=== PATIENT | male | born 1940 ===

== ENCOUNTER 2017-07-04 04:56 | Inpatient (IN) | payer BC, MEDICARE ==
[2017-07-04 05:27] LABS: GRANULAR CAST 1 /lpf (0-1); SQUAMOUS EPITHIAL < 1 /hpf (0-5); URINE BILIRUBIN NEGATIVE (NEGATIVE); URINE BLOOD 3+ (NEGATIVE); URINE CLARITY Clear (Clear); URINE COLOR Yellow (YELLOW); URINE GLUCOSE (UA) NORMAL (Normal); URINE LEUKOCYTE ESTERASE NEG Leu/uL (Negative); URINE PROTEIN 1+ mg/dL (NEGATIVE); URINE UROBILINOGEN NORMAL mg/dL (0.2-1.0)
[2017-07-04 05:29] LABS: BASO # 0.1 K/uL (0.0-0.2); BASO % 0.8 % (0.0-2.0); EOS # 0.1 K/uL (0.0-0.7); EOS % 1.3 % (0.0-4.0); HEMOGLOBIN 14.2 g/dL (12.0-18.0); LYMPH # 0.6 K/uL (1.0-4.3); LYMPH % 8.3 % (20.0-40.0); MEAN CELL VOLUME 91.9 fL (80.0-94.0); MEAN CORPUSCULAR HEMOGLOBIN 31.1 pg (27.0-31.0); MEAN CORPUSCULAR HGB CONC 33.8 g/dL (33.0-37.0); MEAN PLATELET VOLUME 7.4 fL (7.2-11.7); MONO # 0.6 K/uL (0.0-0.8); MONO % 7.5 % (0.0-10.0); NEUT # 6.1 K/uL (1.8-7.0); NEUT % 82.1 % (50.0-75.0); NRBC % 0.2 % (0.0-2.0); PLATELET COUNT 234 K/uL (130-400); RBC 4.56 Mil/uL (4.40-5.90); RED CELL DISTRIBUTION WIDTH 13.1 % (11.5-14.5); WHITE BLOOD COUNT 7.4 K/uL (4.8-10.8)
--- NOTE | 2017-07-04 05:37 | C.PDOC ---
History Of Present Illness <Bautista Aleman R - Last Filed: 07/04/17 06:00> <Dustin Mccurdy - Last Filed: 07/04/17 09:26> 76 y/o male presents to ED with complaints of hematuria described as grossly blood that began today. Patient reports brown urine color tonight. Hx of back pain. (AshBautista Duran) History Per: Patient History/Exam Limitations: no limitations Onset/Duration Of Symptoms: Hrs Current Symptoms Are (Timing): Still Present Quality Of Discomfort: Unable To Describe Associated Symptoms: denies: Fever, Chills, Nausea, Vomiting, Diarrhea Alleviating Factors: None Recent travel outside of the [place]: No <Bautista Aleman - Last Filed: 07/04/17 06:00> <KazDustin - Last Filed: 07/04/17 09:26> Chief Complaint (Nursing): Male Genitourinary Past Medical History Reviewed: Historical Data, Nursing Documentation, Vital Signs - Medical History PMH: No Chronic Diseases Surgical History: No Surg Hx Family History: States: No Known Family Hx - Social History Hx Alcohol Use: No Hx Substance Use: No - Immunization History Hx Tetanus Toxoid Vaccination: No Hx Influenza Vaccination: No Hx Pneumococcal Vaccination: No <Bautista Aleman - Last Filed: 07/04/17 06:00> Vital Signs: Last Vital Signs Temp 98.2 F 07/04/17 08:54 Pulse 73 07/04/17 08:54 Resp 18 07/04/17 08:54 BP 148/74 07/04/17 08:54 Pulse Ox 96 07/04/17 08:54 Review Of Systems Constitutional: Negative for: Fever, Chills Gastrointestinal: Negative for: Nausea, Vomiting, Diarrhea Genitourinary: Positive for: Hematuria. Negative for: Dysuria Neurological: Negative for: Weakness, Numbness <Bautista Aleman - Last Filed: 07/04/17 06:00> Physical Exam - Physical Exam Appears: Well, Non-toxic, No Acute Distress Skin: Normal Color, Warm, Dry Head: Atraumatic, Normacephalic Eye(s): bilateral: Normal Inspection, PERRL, EOMI Oral Mucosa: Moist Neck: Supple Chest: Symmetrical, No Tenderness Cardiovascular: Rhythm Regular Respiratory: Normal Breath Sounds, No Decreased Breath Sounds, No Rales, No Rhonchi, No Wheezing Gastrointestinal/Abdominal: Soft, No Tenderness, No Distention, No Guarding, No Rebound Extremity: Normal ROM Neurological/Psych: Oriented x3, Normal Speech, Normal Cognition <Bautista Aleman R - Last Filed: 07/04/17 06:00> ED Course And Treatment - Laboratory Results Result Diagrams: 07/04/17 05:25 07/04/17 05:25 O2 Sat by Pulse Oximetry: 97 (RA) Pulse Ox Interpretation: Normal - CT Scan/US CT Abdomen & Pelvis Other Rad Studies (CT/US): Read By Radiologist, Radiology Report Reviewed CT/US Interpretation: EXAM: CT Abdomen and Pelvis Without Intravenous Contrast. CLINICAL HISTORY: 76 years old, male; Signs and symp. [facility]. [facility]. Final Radiology Report [id number]. Name: ABEBE CORTEZ Age: 76Years M Date: 07/04/2017. : 1940. Study: CT ABDOMEN/PELVIS WO Requesting Physician: Bautista Aleman. Images: 584. Addl Studies: Provided Clinical History: gross hematuria. CONFIDENTIALITY STATEMENT. This transmission is confidential and is intended to be a privileged communication. It is intended only for the use of the addressee. Access to this. message by anyone else is unauthorized. If you are not the intended recipient, any disclosure, copying, distribution or any action taken, or omitted to. be taken in reliance on it is prohibited and may be unlawful. If you received this communication in error, please notify us by telephone, so that return. of this document to us can be arranged. Page 2 of 3. Pancreas: Unremarkable. No ductal dilation. Spleen: Unremarkable. No splenomegaly. Adrenals: The right adrenal nodule measures 2.1 cm with a mean Hounsfield unit of 38 and is. indeterminate. The left adrenal nodule measures 2.5 cm with a mean Hounsfield unit of 39 and is. indeterminate. Kidneys and ureters: There is right perinephric inflammatory change with heterogeneous complex. density appearance to the right kidney. The right kidney mass cannot be excluded. Faint densities in. the medullary regions of left kidney are somewhat nonspecific, perhaps reflecting dense solute,. Herrera's plaque, tiny calcifications, or other debris. Abnormal appearance to the right kidney. Right. renal hypodensity likely representing renal cysts. Nonobstructive left renal stone. Stomach and bowel: Diverticulosis. Large amount of stool in the colon. Correlation with patient's. clinical history of constipation is recommended. There is stool like appearance to the distal small. bowel. This may represent slow transit. Appendix: Suboptimally seen normal appendix. PELVIS: Bladder: Partially decompressed bladder with bladder wall thickening. Correlation with urinalysis is. recommended only if clinical cystitis is suspected. Reproductive: Enlarged prostate gland measuring 6.4 x 5.8 cm with calcifications. Correlation with. digital rectal examination and serum PSA recommended. Possible hydrocele. ABDOMEN and PELVIS: Intraperitoneal space: Unremarkable. No free air. No significant fluid collection. Bones/joints: No acute fracture. No dislocation. Soft tissues: Bilateral inguinal herniation of fat. Vasculature: The aorta demonstrates calcified plaque and is mildly ectatic but normal in caliber. Lymph nodes: Unremarkable. No enlarged lymph nodes. [facility]. [facility]. Final Radiology Report [id number]. Name: ABEBE CORTEZ Age: 76Years M Date: 07/04/2017. SSN: [id number] : . Study: CT ABDOMEN/PELVIS WO Requesting Physician: Bautista Aleman. Images: 584. Addl Studies: Provided Clinical History: gross hematuria. CONFIDENTIALITY STATEMENT. This transmission is confidential and is intended to be a privileged communication. It is intended only for the use of the addressee. Access to this. message by anyone else is unauthorized. If you are not the intended recipient, any disclosure, copying, distribution or any action taken, or omitted to. be taken in reliance on it is prohibited and may be unlawful. If you received this communication in error, please notify us by telephone, so that return. of this document to us can be arranged. Page 3 of 3. IMPRESSION: 1. There is right perinephric inflammatory change with heterogeneous complex density. appearance to the right kidney. The right kidney mass cannot be excluded. Further. characterization with contrast enhanced CT scan with delayed imaging through the kidneys is. recommended. 2. Small bilateral pleural effusions. 3. Bibasilar lingular nonspecific infiltrates are present, consistent with atelectasis or pneumonia. versus edema. 4. Bilateral indeterminate adrenal nodules. Correlation with internal medicine/oncology evaluation and further workup or followup as. recommended by patient's clinical data. <Bautista Aelman - Last Filed: 07/04/17 06:00> - Laboratory Results Result Diagrams: 07/04/17 05:25 07/04/17 05:25 <Dustin Mccurdy - Last Filed: 07/04/17 09:26> Medical Decision Making <Bautista Aleman - Last Filed: 07/04/17 06:00> <Dustin Mccurdy - Last Filed: 07/04/17 09:26> Medical Decision Making: Ordered urine culture, urinalysis, and CT of abdomen & Pelvis. (Bautista Aleman) Signed out to me at change of shift pending CT chest due to infiltrates seen on CT abd CT chest shows multiple nodular opacities and consolidation. Patient does report cough for 3 weeks. Will start antibiotics for this as well as renal stranding and hematuria. (Dustin Mccurdy) Disposition <Bautista Aleman - Last Filed: 07/04/17 06:00> Discussed With .: Elvia Byrne Doctor Will See Patient In The: Hospital - Disposition Disposition Time: 09:25 - POA Core Measure Indicators: Pneumonia <Dustin Mccurdy - Last Filed: 07/04/17 09:26> - Disposition Disposition: HOSPITALIZED Condition: FAIR Forms: [facility] (Arabic) - Clinical Impression Clinical Impression: Pneumonia, Hematuria - Scribe Statement The provider has reviewed the documentation as recorded by the Scribe <Bautista Aleman - Last Filed: 07/04/17 06:00> <Dustin Mccurdy - Last Filed: 07/04/17 09:26> - Scribe Statement Kiesha Rojo All medical record entries made by the Scribe were at my direction and personally dictated by me. I have reviewed the chart and agree that the record accurately reflects my personal performance of the history, physical exam, medical decision making, and the department course for this patient. I have also personally directed, reviewed, and agree with the discharge instructions and disposition. (Bautista Aleman)
[2017-07-04 05:39] LABS: ALB/GLOB RATIO 1.1 (1.0-2.1); ALBUMIN 3.8 g/dL (3.5-5.0); ALT/SGPT 24 U/L (21-72); AST/SGOT 70 U/L (17-59); BLOOD UREA NITROGEN 22 mg/dL (9-20); CALCIUM 9.6 mg/dl (8.6-10.4); GFR AFRICAN-AMERICAN > 60; GFR NON-AFRICAN AMERICAN > 60
[2017-07-04 05:42] LABS: INR 1.1; PROTHROMBIN TIME 12.2 SECONDS (9.7-12.2)
--- NOTE | 2017-07-04 05:58 | CT ---
EXAM: CT Abdomen and Pelvis Without Intravenous Contrast CLINICAL HISTORY: 76 years old, male; Signs and symptoms; Other: Hematuria; Additional info: Gross hematuria TECHNIQUE: Axial computed tomography images of the abdomen and pelvis without intravenous contrast. All CT scans at this facility use one or more dose reduction techniques, viz.: automated exposure control; ma/kV adjustment per patient size (including targeted exams where dose is matched to indication; i.e. head); or iterative reconstruction technique. 584 images are submitted. Coronal and sagittal reformatted images were created and reviewed. COMPARISON: No relevant prior studies available. FINDINGS: Artifacts: Limited due to motion and misregistration artifacts. Limitations: Absence of IV contrast decreases sensitivity for detecting solid organ and vascular abnormality and injury. Lung bases: Bibasilar lingular nonspecific infiltrates are present, consistent with atelectasis or pneumonia versus edema. Pleural space: Small bilateral pleural effusions. ABDOMEN: Liver: There is a focal liver hypodensity that cannot be further characterized on the current examination. Gallbladder and bile ducts: Unremarkable. No ductal dilation. Pancreas: Unremarkable. No ductal dilation. Spleen: Unremarkable. No splenomegaly. Adrenals: The right adrenal nodule measures 2.1 cm with a mean Hounsfield unit of 38 and is indeterminate. The left adrenal nodule measures 2.5 cm with a mean Hounsfield unit of 39 and is indeterminate. Kidneys and ureters: There is right perinephric inflammatory change with heterogeneous complex density appearance to the right kidney. The right kidney mass cannot be excluded. Faint densities in the medullary regions of left kidney are somewhat nonspecific, perhaps reflecting dense solute, Herrera's plaque, tiny calcifications, or other debris. Abnormal appearance to the right kidney. Right renal hypodensity likely representing renal cysts. Nonobstructive left renal stone. Stomach and bowel: Diverticulosis. Large amount of stool in the colon. Correlation with patient's clinical history of constipation is recommended. There is stool like appearance to the distal small bowel. This may represent slow transit. Appendix: Suboptimally seen normal appendix. PELVIS: Bladder: Partially decompressed bladder with bladder wall thickening. Correlation with urinalysis is recommended only if clinical cystitis is suspected. Reproductive: Enlarged prostate gland measuring 6.4 x 5.8 cm with calcifications. Correlation with digital rectal examination and serum PSA recommended. Possible hydrocele. ABDOMEN and PELVIS: Intraperitoneal space: Unremarkable. No free air. No significant fluid collection. Bones/joints: No acute fracture. No dislocation. Soft tissues: Bilateral inguinal herniation of fat. Vasculature: The aorta demonstrates calcified plaque and is mildly ectatic but normal in caliber. Lymph nodes: Unremarkable. No enlarged lymph nodes. IMPRESSION: 1. There is right perinephric inflammatory change with heterogeneous complex density appearance to the right kidney. The right kidney mass cannot be excluded. Further characterization with contrast enhanced CT scan with delayed imaging through the kidneys is recommended. 2. Small bilateral pleural effusions. 3. Bibasilar lingular nonspecific infiltrates are present, consistent with atelectasis or pneumonia versus edema. 4. Bilateral indeterminate adrenal nodules. Correlation with internal medicine/oncology evaluation and further workup or followup as recommended by patient's clinical data.
[2017-07-04 06:26] LABS: BASOPHIL 1 % (0-2); EOSINOPHIL 1 % (0-4); LYMPHOCYTE 8 % (20-40); MONOCYTE 9 % (0-10); NEUTROPHIL 81 % (50-75); PLATELET ESTIMATE NORMAL (NORMAL); TOTAL CELLS COUNTED 100
--- NOTE | 2017-07-04 09:10 | CT ---
CT chest History: Effusion. Comparison: CT abdomen and pelvis dated 07/04/2017 Technique: Multiple contiguous axial images were performed through the chest without the use of intravenous contrast. Subsequently, sagittal and coronal reformatted images were obtained. This CT exam was performed using one or more of the following dose reduction techniques: Automated exposure control, adjustment of the mA and/or kV according to patient size, and/or use of iterative reconstruction technique. Findings: Trace bilateral pleural effusions. Right lun.4 centimeter focal area of nodular consolidation seen within the posterior aspect of the right upper lobe on series 3, image 32. Additional focal area of nodular consolidation seen within the anterior aspect of the right upper lobe on series 3, image 40. 6 millimeter nodule within the far anterior inferior aspect of the right upper lobe on series 3 image 55 adjacent to the fissure. Patchy consolidative changes at the right lung base. Left lun millimeter nodule within the lateral aspect of the mid left upper lobe on series 3, image 48. Focal ill-defined infiltrative opacity seen within the inferior aspect of the left upper lobe/lingula measuring 2.7 centimeters. Patchy consolidative changes at the posterior aspect of the left lower lobe. Trachea thru central airways are patent. No significant axillary adenopathy. Thyroid gland appears preserved. 1.1 centimeter left paratracheal lymph node. No significant hilar adenopathy. Prominent liver. 3 millimeter calcification in the right hepatic lobe superiorly. Few scattered focal hypodensities, too small to adequately characterize. For example, a 6 millimeter hypodensity in the left hepatic lobe on series 4, image 90, is too small to adequately characterize. Prominent nodular thickening of the bilateral adrenal glands. Superimposed lesions are noted; for example, on series 4, image 103 in the right adrenal gland measuring 2.1 centimeters demonstrating a Hounsfield unit attenuation of 28, indeterminate. In addition, in the left adrenal gland an additional lesion measuring 2.3 centimeters demonstrating a Hounsfield unit attenuation of 31, indeterminate. These would be better characterized with multiphasic CT or MRI studies. 9 millimeter nonobstructive calculus in the left kidney. Right perinephric inflammatory changes with heterogeneous complex density appearance to the right kidney. Right kidney mass and or neoplasm cannot be excluded. Partially exophytic cyst off the posterior aspect of the right kidney measures 1.6 centimeters. Degenerative changes in spine. Impression: 1. Again identified is right perinephric inflammatory changes with heterogeneous complex density appearance of the right kidney. Underlying right kidney mass and or neoplasm cannot be excluded. Correlation with multiphasic CT or MR through this region would be helpful if clinically indicated. 2. Trace bilateral pleural effusions. 3. 1.4 centimeter focal area of nodular consolidation seen within the posterior aspect of the right upper lobe on series 3, image 32. Additional focal area of nodular consolidation seen within the anterior aspect of the right upper lobe on series 3, image 40. 6 millimeter nodule within the far anterior inferior aspect of the right upper lobe on series 3 image 55 adjacent to the fissure. Patchy consolidative changes at the right lung base. Posttreatment interval followup study would be helpful to ensure resolution. 4. 2 millimeter nodule within the lateral aspect of the mid left upper lobe on series 3, image 48. Focal ill-defined infiltrative opacity seen within the inferior aspect of the left upper lobe/lingula measuring 2.7 centimeters. Patchy consolidative changes at the posterior aspect of the left lower lobe. Posttreatment interval followup study would be helpful to ensure resolution. 5. 1.1 centimeter left paratracheal lymph node. 6. Prominent liver. 3 millimeter calcification in the right hepatic lobe superiorly. Few scattered focal hypodensities, too small to adequately characterize. For example, a 6 millimeter hypodensity in the left hepatic lobe on series 4, image 90, is too small to adequately characterize. 7. Prominent nodular thickening of the bilateral adrenal glands. Superimposed lesions are noted; for example, on series 4, image 103 in the right adrenal gland measuring 2.1 centimeters demonstrating a Hounsfield unit attenuation of 28, indeterminate. In addition, in the left adrenal gland an additional lesion measuring 2.3 centimeters demonstrating a Hounsfield unit attenuation of 31, indeterminate. These would be better characterized with multiphasic CT or MRI studies. 8. 9 millimeter nonobstructive calculus in the left kidney.
[2017-07-04] MEDS ORDERED: Cefepime IV 1 gm in Dextrose 1 GM/50 ML BAG IVPB STA (09:21)
[2017-07-04] MEDS ORDERED: Enoxaparin 40 mg Syringe SC SCH (11:15)
[2017-07-04] MEDS: Pantoprazole 40 mg EC Tab PO SCH (11:48)
[2017-07-04] MEDS: Azithromycin 500mg/250ML NS 500 MG/250 ML BAG IVPB SCH (12:34)
--- NOTE | 2017-07-04 18:07 | CP.PCM.HP ---
Past Patient History - Infectious Disease Hx of Infectious Diseases: None - Past Medical History & Family History Past Medical History?: No - Past Social History Smoking Status: Never Smoked - CARDIAC Hx Cardiac Disorders: No - PULMONARY Hx Respiratory Disorders: No - NEUROLOGICAL Hx Neurological Disorder: No - HEENT Hx HEENT Problems: No - RENAL Hx Chronic Kidney Disease: No - ENDOCRINE/METABOLIC Hx Endocrine Disorders: No - HEMATOLOGICAL/ONCOLOGICAL Hx Blood Disorders: Yes Hx Cancer: Yes (skin) - INTEGUMENTARY Hx Dermatological Problems: No - MUSCULOSKELETAL/RHEUMATOLOGICAL Hx Musculoskeletal Disorders: No Hx Falls: No - GASTROINTESTINAL Hx Gastrointestinal Disorders: No - GENITOURINARY/GYNECOLOGICAL Hx Genitourinary Disorders: No - PSYCHIATRIC Hx Substance Use: No - SURGICAL HISTORY Hx Surgeries: Yes Other/Comment: Hernia repair in 1984 - ANESTHESIA Hx Anesthesia: Yes Hx Anesthesia Reactions: No Hx Malignant Hyperthermia: No Meds Allergies/Adverse Reactions: Allergies Allergy/AdvReac Type Severity Reaction Status Date / Time Penicillins Allergy Verified 07/04/17 09:26 Physical Exam - Constitutional Appears: Well - Head Exam Head Exam: ATRAUMATIC, NORMAL INSPECTION, NORMOCEPHALIC - Eye Exam Eye Exam: EOMI, Normal appearance, PERRL Pupil Exam: NORMAL ACCOMODATION, PERRL - ENT Exam ENT Exam: Mucous Membranes Moist, Normal Exam - Neck Exam Neck exam: Positive for: Normal Inspection - Respiratory Exam Respiratory Exam: Decreased Breath Sounds - Cardiovascular Exam Cardiovascular Exam: REGULAR RHYTHM, +S1, +S2 - GI/Abdominal Exam GI & Abdominal Exam: Diminished Bowel Sounds, Soft - Rectal Exam Rectal Exam: Deferred Results - Vital Signs Recent Vital Signs: Last Vital Signs Temp 98.2 F 07/04/17 16:00 Pulse 82 07/04/17 16:00 Resp 20 07/04/17 16:00 BP 153/79 H 07/04/17 16:00 Pulse Ox 97 07/04/17 16:00 - Labs Result Diagrams: 07/04/17 05:25 07/04/17 05:25 Labs: Laboratory Results - last 24 hr 07/04/17 07/04/17 07/04/17 05:19 05:25 05:25 WBC 7.4 RBC 4.56 Hgb 14.2 Hct 41.9 MCV 91.9 MCH 31.1 H MCHC 33.8 RDW 13.1 Plt Count 234 MPV 7.4 Neut % (Auto) 82.1 H Lymph % (Auto) 8.3 L [place] % (Auto) 7.5 Eos % (Auto) 1.3 Baso % (Auto) 0.8 Neut # (Auto) 6.1 Lymph # (Auto) 0.6 L [place] # (Auto) 0.6 Eos # (Auto) 0.1 Baso # (Auto) 0.1 Neutrophils % (Manual) 81 H Lymphocytes % (Manual) 8 L Monocytes % (Manual) 9 Eosinophils % (Manual) 1 Basophils % (Manual) 1 Platelet Estimate Normal RBC Morphology Normal PT 12.2 INR 1.1 APTT 32 Sodium Potassium Chloride Carbon Dioxide Anion Gap BUN Creatinine Est GFR ( Amer) Est GFR (Non-Af Amer) Random Glucose Calcium Total Bilirubin AST ALT Alkaline Phosphatase NT-Pro-B Natriuret Pep Total Protein Albumin Globulin Albumin/Globulin Ratio Urine Color Yellow Urine Clarity Clear Urine pH 5.0 Ur Specific [place] 1.019 Urine Protein 1+ H Urine Glucose (UA) Normal Urine Ketones Negative Urine Blood 3+ H Urine Nitrate Negative Urine Bilirubin Negative Urine Urobilinogen Normal Ur Leukocyte Esterase Neg Urine WBC (Auto) 5 Urine RBC (Auto) 102 H Ur Squamous Epith Cells < 1 Granular Casts (Auto) 1 07/04/17 07/04/17 05:25 06:51 WBC RBC Hgb Hct MCV MCH MCHC RDW Plt Count MPV Neut % (Auto) Lymph % (Auto) [place] % (Auto) Eos % (Auto) Baso % (Auto) Neut # (Auto) Lymph # (Auto) [place] # (Auto) Eos # (Auto) Baso # (Auto) Neutrophils % (Manual) Lymphocytes % (Manual) Monocytes % (Manual) Eosinophils % (Manual) Basophils % (Manual) Platelet Estimate RBC Morphology PT INR APTT Sodium 139 Potassium 4.2 Chloride 100 Carbon Dioxide 27 Anion Gap 16 BUN 22 H Creatinine 1.1 Est GFR ( Amer) > 60 Est GFR (Non-Af Amer) > 60 Random Glucose 101 Calcium 9.6 Total Bilirubin 0.8 AST 70 H ALT 24 Alkaline Phosphatase 80 NT-Pro-B Natriuret Pep 80.8 Total Protein 7.3 Albumin 3.8 Globulin 3.5 Albumin/Globulin Ratio 1.1 Urine Color Urine Clarity Urine pH Ur Specific [place] Urine Protein Urine Glucose (UA) Urine Ketones Urine Blood Urine Nitrate Urine Bilirubin Urine Urobilinogen Ur Leukocyte Esterase Urine WBC (Auto) Urine RBC (Auto) Ur Squamous Epith Cells Granular Casts (Auto)
[2017-07-05 07:58] LABS: BASO % 0.2 % (0.0-2.0); EOS # 0.1 K/uL (0.0-0.7); EOS % 1.1 % (0.0-4.0); HEMOGLOBIN 14.3 g/dL (12.0-18.0); LYMPH # 0.7 K/uL (1.0-4.3); LYMPH % 11.3 % (20.0-40.0); MEAN CELL VOLUME 92.3 fL (80.0-94.0); MEAN CORPUSCULAR HEMOGLOBIN 31.6 pg (27.0-31.0); MEAN CORPUSCULAR HGB CONC 34.2 g/dL (33.0-37.0); MEAN PLATELET VOLUME 7.8 fL (7.2-11.7); MONO # 0.6 K/uL (0.0-0.8); NEUT # 4.9 K/uL (1.8-7.0); NEUT % 77.4 % (50.0-75.0); NRBC % 0.1 % (0.0-2.0); RBC 4.52 Mil/uL (4.40-5.90); RED CELL DISTRIBUTION WIDTH 12.9 % (11.5-14.5); WHITE BLOOD COUNT 6.3 K/uL (4.8-10.8)
[2017-07-05 08:16] LABS: ALBUMIN 3.4 g/dL (3.5-5.0); ALT/SGPT 18 U/L (21-72); AST/SGOT 70 U/L (17-59); BLOOD UREA NITROGEN 18 mg/dL (9-20); CALCIUM 9.6 mg/dl (8.6-10.4); GFR AFRICAN-AMERICAN > 60; GFR NON-AFRICAN AMERICAN 59
[2017-07-05] MEDS: Pantoprazole 40 mg EC Tab PO SCH (09:08)
[2017-07-05] MEDS: Azithromycin 500mg/250ML NS 500 MG/250 ML BAG IVPB SCH (11:14)
--- NOTE | 2017-07-05 15:14 | CP.PCM.PN ---
Subjective - Date & Time of Evaluation Date of Evaluation: 07/05/17 Time of Evaluation: 09:20 - Subjective Subjective: clinically same Objective - Vital Signs/Intake and Output Vital Signs (last 24 hours): Temp Pulse Resp BP Pulse Ox 97.6 F 79 20 137/71 95 07/05/17 08:00 07/05/17 08:00 07/05/17 08:00 07/05/17 08:00 07/05/17 08:00 Intake and Output: 07/05/17 07/05/17 06:59 18:59 Intake Total 470 Balance 470 - Medications Medications: Current Medications Cefepime HCl 1 gm/ Dextrose 50 mls @ 100 mls/hr IVPB DAILY KATHLEEN PRN Reason: Protocol Last Admin: 07/05/17 09:08 Dose: 100 mls/hr Azithromycin (Zithromax 500mg In Ns Addvantage) 500 mg in 250 mls @ 167 mls/hr IVPB Q24H KATHLEEN PRN Reason: Protocol Last Admin: 07/05/17 11:14 Dose: 167 mls/hr Pantoprazole Sodium (Protonix Ec Tab) 40 mg PO DAILY [facility] Last Admin: 07/05/17 09:08 Dose: 40 mg Pneumococcal Polyvalent Vaccine (Pneumovax 23 Vaccine) 0.5 ml IM .ONCE ONE Stop: 07/07/17 10:01 - Labs Labs: 07/05/17 07:40 07/05/17 07:40 PT 12.2 SECONDS (9.7-12.2) 07/04/17 05:25 INR 1.1 07/04/17 05:25 APTT 32 SECONDS (21-34) 07/04/17 05:25 - Constitutional Appears: Well - Head Exam Head Exam: ATRAUMATIC, NORMAL INSPECTION, NORMOCEPHALIC - Eye Exam Eye Exam: EOMI, Normal appearance, PERRL Pupil Exam: NORMAL ACCOMODATION, PERRL - ENT Exam ENT Exam: Mucous Membranes Moist, Normal Exam - Neck Exam Neck Exam: Full ROM, Normal Inspection. absent: Lymphadenopathy - Respiratory Exam Respiratory Exam: Decreased Breath Sounds - Cardiovascular Exam Cardiovascular Exam: REGULAR RHYTHM, +S1, +S2 - GI/Abdominal Exam GI & Abdominal Exam: Soft, Diminished Bowel Sounds - Rectal Exam Rectal Exam: Deferred
--- NOTE | 2017-07-05 15:23 | CP.PCM.PCO ---
Physician Communication Note - Physician Communication Note Physician Communication Note: Please see above
[2017-07-05] MEDS ORDERED: Oxymetazoline 0.05% Nasal Spray (30 ml) NS ONE (16:00)
[2017-07-06 07:20] LABS: BASO % 0.2 % (0.0-2.0); EOS # 0.1 K/uL (0.0-0.7); EOS % 1.2 % (0.0-4.0); HEMOGLOBIN 13.9 g/dL (12.0-18.0); LYMPH # 0.9 K/uL (1.0-4.3); LYMPH % 13.1 % (20.0-40.0); MEAN CELL VOLUME 91.7 fL (80.0-94.0); MEAN CORPUSCULAR HEMOGLOBIN 31.5 pg (27.0-31.0); MEAN CORPUSCULAR HGB CONC 34.3 g/dL (33.0-37.0); MEAN PLATELET VOLUME 7.7 fL (7.2-11.7); MONO # 0.7 K/uL (0.0-0.8); MONO % 10.9 % (0.0-10.0); NEUT # 4.9 K/uL (1.8-7.0); NEUT % 74.6 % (50.0-75.0); RBC 4.42 Mil/uL (4.40-5.90); RED CELL DISTRIBUTION WIDTH 12.6 % (11.5-14.5); WHITE BLOOD COUNT 6.6 K/uL (4.8-10.8)
[2017-07-06 07:36] LABS: ALBUMIN 3.6 g/dL (3.5-5.0); ALT/SGPT 17 U/L (21-72); AST/SGOT 79 U/L (17-59); BLOOD UREA NITROGEN 18 mg/dL (9-20); CALCIUM 9.9 mg/dl (8.6-10.4); GFR AFRICAN-AMERICAN > 60; GFR NON-AFRICAN AMERICAN 59
[2017-07-06] MEDS: Pantoprazole 40 mg EC Tab PO SCH (10:20)
[2017-07-06] MEDS: Azithromycin 500mg/250ML NS 500 MG/250 ML BAG IVPB SCH (10:59)
--- NOTE | 2017-07-06 13:52 | CP.PCM.PN ---
Subjective - Date & Time of Evaluation Date of Evaluation: 07/06/17 Time of Evaluation: 10:40 - Subjective Subjective: clinically same Objective - Vital Signs/Intake and Output Vital Signs (last 24 hours): Temp Pulse Resp BP Pulse Ox 98.1 F 71 20 122/69 96 07/06/17 00:00 07/06/17 00:00 07/06/17 00:00 07/06/17 00:00 07/06/17 00:00 - Medications Medications: Current Medications Cefepime HCl 1 gm/ Dextrose 50 mls @ 100 mls/hr IVPB DAILY KATHLEEN PRN Reason: Protocol Last Admin: 07/06/17 10:20 Dose: 100 mls/hr Azithromycin (Zithromax 500mg In Ns Addvantage) 500 mg in 250 mls @ 167 mls/hr IVPB Q24H KATHLEEN PRN Reason: Protocol Last Admin: 07/06/17 10:59 Dose: 167 mls/hr Pantoprazole Sodium (Protonix Ec Tab) 40 mg PO DAILY KATHLEEN Last Admin: 07/06/17 10:20 Dose: 40 mg Pneumococcal Polyvalent Vaccine (Pneumovax 23 Vaccine) 0.5 ml IM .ONCE ONE Stop: 07/07/17 10:01 - Labs Labs: 07/06/17 06:56 07/06/17 06:56 PT 12.2 SECONDS (9.7-12.2) 07/04/17 05:25 INR 1.1 07/04/17 05:25 APTT 32 SECONDS (21-34) 07/04/17 05:25 - Constitutional Appears: Well - Head Exam Head Exam: ATRAUMATIC, NORMAL INSPECTION, NORMOCEPHALIC - Eye Exam Eye Exam: EOMI, Normal appearance, PERRL Pupil Exam: NORMAL ACCOMODATION, PERRL - ENT Exam ENT Exam: Mucous Membranes Moist, Normal Exam - Neck Exam Neck Exam: Full ROM, Normal Inspection. absent: Lymphadenopathy - Respiratory Exam Respiratory Exam: Decreased Breath Sounds - Cardiovascular Exam Cardiovascular Exam: REGULAR RHYTHM, +S1, +S2 - GI/Abdominal Exam GI & Abdominal Exam: Soft, Diminished Bowel Sounds - Rectal Exam Rectal Exam: Deferred
--- NOTE | 2017-07-06 21:29 | PCM.URO ---
Urology Progress Note - Objective Lab Studies: Reviewed (cystoscopy tomorrow) Lab Results Last 24 Hours: Laboratory Results - last 24 hr 07/06/17 07/06/17 06:56 06:56 WBC 6.6 RBC 4.42 Hgb 13.9 Hct 40.5 MCV 91.7 MCH 31.5 H MCHC 34.3 RDW 12.6 Plt Count 234 MPV 7.7 Neut % (Auto) 74.6 Lymph % (Auto) 13.1 L [place] % (Auto) 10.9 H Eos % (Auto) 1.2 Baso % (Auto) 0.2 Neut # (Auto) 4.9 Lymph # (Auto) 0.9 L [place] # (Auto) 0.7 Eos # (Auto) 0.1 Baso # (Auto) 0.0 Sodium 139 Potassium 4.4 Chloride 99 Carbon Dioxide 30 Anion Gap 15 BUN 18 Creatinine 1.2 Est GFR ( Amer) > 60 Est GFR (Non-Af Amer) 59 Random Glucose 100 Calcium 9.9 Total Bilirubin 0.7 AST 79 H ALT 17 L Alkaline Phosphatase 78 Total Protein 7.0 Albumin 3.6 Globulin 3.4 Albumin/Globulin Ratio 1.0 Intake & Output: Intake & Output 07/06/17 07/06/17 07/07/17 06:59 18:59 06:59 Other: # Voids Urine, Voided 2 Vital Signs: Vital Signs - 24 hr 07/06/17 07/06/17 00:00 15:00 Temperature 98.1 F 98.4 F Pulse Rate 71 72 Respiratory 20 20 Rate Blood Pressure 122/69 143/72 O2 Sat by Pulse 96 97 Oximetry
--- NOTE | 2017-07-06 21:44 | CON ---
DATE: 07/06/2017 REASON FOR CONSULTATION: Epistaxis. REQUESTING PHYSICIAN: Dr. Hussein Byrne. HISTORY OF PRESENT ILLNESS: This is a 76-year-old male who had an episode of epistaxis on the right yesterday. It was [id number] in intensity, constant, lasted for a few minutes and then stopped by itself. There is no nasal congestion. No runny nose now. PAST MEDICAL HISTORY: As noted in the chart by me. MEDICATIONS: As noted in the chart by me. PHYSICAL EXAMINATION: HEAD: Atraumatic and normocephalic. FACE: Good facial movements bilaterally. CONSTITUTIONAL: Well fed, well nourished. COMMUNICATION: Communicates well and appropriately. EXTERNAL NOSE AND EARS: No masses. No lesions. No erythema. No edema. INTERNAL NOSE: No bleeding. Deviated septum. No masses. No lesions. No erythema. No edema. ORAL CAVITY AND OROPHARYNX: No bloody postnasal drip. No other masses or lesions noted. No erythema. No edema. LIPS AND GUMS: No masses. No lesions. No erythema. No edema. NECK: Supple. THYROID: No thyromegaly. No goiter. LYMPH NODES: No lymphadenopathy of the neck. ASSESSMENT: 1. Epistaxis on the right, resolved. 2. Deviated septum. PLAN: Consider nasal saline spray and bacitracin to the nose. This is not bleeding now. No intervention is needed at this point. If the patient continues to bleed, we will consider packing, cauterizing the nose. Chang Milton MD
[2017-07-07 06:27] LABS: BASO % 0.4 % (0.0-2.0); EOS # 0.1 K/uL (0.0-0.7); EOS % 1.5 % (0.0-4.0); HEMOGLOBIN 13.2 g/dL (12.0-18.0); LYMPH # 0.8 K/uL (1.0-4.3); LYMPH % 12.2 % (20.0-40.0); MEAN CELL VOLUME 90.8 fL (80.0-94.0); MEAN CORPUSCULAR HGB CONC 34.2 g/dL (33.0-37.0); MEAN PLATELET VOLUME 7.6 fL (7.2-11.7); MONO # 0.7 K/uL (0.0-0.8); MONO % 9.8 % (0.0-10.0); NEUT # 5.2 K/uL (1.8-7.0); NEUT % 76.1 % (50.0-75.0); NRBC % 0.1 % (0.0-2.0); RBC 4.25 Mil/uL (4.40-5.90); RED CELL DISTRIBUTION WIDTH 12.8 % (11.5-14.5); WHITE BLOOD COUNT 6.8 K/uL (4.8-10.8)
[2017-07-07 06:46] LABS: ALBUMIN 3.3 g/dL (3.5-5.0); ALT/SGPT 23 U/L (21-72); AST/SGOT 73 U/L (17-59); BLOOD UREA NITROGEN 21 mg/dL (9-20); CALCIUM 9.8 mg/dl (8.6-10.4); GFR AFRICAN-AMERICAN > 60; GFR NON-AFRICAN AMERICAN 59
[2017-07-07] MEDS ORDERED: Pneumococcal 23-Valent Vaccine IM ONE (10:00)
[2017-07-07] MEDS: Pantoprazole 40 mg EC Tab PO SCH (10:02)
[2017-07-07] MEDS: Azithromycin 500mg/250ML NS 500 MG/250 ML BAG IVPB SCH (11:40)
[2017-07-07] MEDS: guaiFENesin 200 mg/10 ml Syrup UD PO SCH ×2 (11:40→18:15)
--- NOTE | 2017-07-07 13:01 | CARD ---
APPROVED REPORT EKG Measurement Heart [id number] <Conclusion> Normal sinus rhythm Possible Left atrial enlargement Left axis deviation Abnormal ECG
--- NOTE | 2017-07-07 15:17 | CP.PCM.PN ---
Subjective - Date & Time of Evaluation Date of Evaluation: 07/07/17 Time of Evaluation: 08:00 - Subjective Subjective: clinically same Objective - Vital Signs/Intake and Output Vital Signs (last 24 hours): Temp Pulse Resp BP Pulse Ox 97.6 F 81 20 123/74 97 07/07/17 07:33 07/07/17 07:33 07/07/17 07:33 07/07/17 07:33 07/07/17 07:33 Intake and Output: 07/07/17 07/07/17 06:59 18:59 Intake Total 480 Balance 480 - Medications Medications: Current Medications Guaifenesin (Robitussin) 200 mg PO Q6H [facility] Last Admin: 07/07/17 11:40 Dose: 200 mg Cefepime HCl 1 gm/ Dextrose 50 mls @ 100 mls/hr IVPB DAILY KATHLEEN PRN Reason: Protocol Last Admin: 07/07/17 10:55 Dose: 100 mls/hr Azithromycin (Zithromax 500mg In Ns Addvantage) 500 mg in 250 mls @ 167 mls/hr IVPB Q24H KATHLEEN PRN Reason: Protocol Last Admin: 07/07/17 11:40 Dose: 167 mls/hr Pantoprazole Sodium (Protonix Ec Tab) 40 mg PO DAILY KATHLEEN Last Admin: 07/07/17 10:02 Dose: Not Given - Labs Labs: 07/07/17 06:18 07/07/17 06:18 PT 12.2 SECONDS (9.7-12.2) 07/04/17 05:25 INR 1.1 07/04/17 05:25 APTT 32 SECONDS (21-34) 07/04/17 05:25 - Constitutional Appears: Well - Head Exam Head Exam: ATRAUMATIC, NORMAL INSPECTION, NORMOCEPHALIC - Eye Exam Eye Exam: EOMI, Normal appearance, PERRL Pupil Exam: NORMAL ACCOMODATION, PERRL - ENT Exam ENT Exam: Mucous Membranes Moist, Normal Exam - Neck Exam Neck Exam: Full ROM, Normal Inspection. absent: Lymphadenopathy - Respiratory Exam Respiratory Exam: Decreased Breath Sounds - Cardiovascular Exam Cardiovascular Exam: REGULAR RHYTHM, +S1, +S2 - GI/Abdominal Exam GI & Abdominal Exam: Soft, Diminished Bowel Sounds - Rectal Exam Rectal Exam: Deferred
[2017-07-07] MEDS ORDERED: HYDROmorphone 0.5 mg/0.5 ml ISec IVP PRN (19:00)
[2017-07-07] MEDS ORDERED: Propofol 10 mg/ml Inj (20 ML) ONE (19:21)
[2017-07-07] MEDS ORDERED: Lidocaine 2% Jelly (Uro-Jet) ONE (19:22)
[2017-07-07] MEDS: Iohexol 240 (50 ml) ONE ×2 (19:35→19:54)
[2017-07-07] MEDS ORDERED: ePHEDrine 50 mg/ml Inj ONE (19:38)
[2017-07-07 23:25] VITALS: RESP 20
[2017-07-08] MEDS: guaiFENesin 200 mg/10 ml Syrup UD PO SCH ×4 (01:05→18:21)
--- NOTE | 2017-07-08 09:20 | RAD ---
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 No bowel obstruction. No masses or abnormal calcifications. A film labeled last film demonstrates some residual contrast material within the renal collecting system bilaterally and within the right ureter and urinary bladder, resulting from an intervening retrograde pyelogram. BONES: Normal. OTHER FINDINGS: None. IMPRESSION: Unremarkable.
--- NOTE | 2017-07-08 10:24 | RAD ---
PROCEDURE: Intraoperative fluoroscopy HISTORY: BLOOD IN URINE COMPARISON: Not available TECHNIQUE: Intraoperative fluoroscopy was provided for retrograde pyeloureterography total time of fluoroscopy was 3.1 seconds. . FINDINGS: Three fluoroscopic spot films are submitted. Films are on file for review. IMPRESSION: Fluoroscopy provided.
[2017-07-08] MEDS: Pantoprazole 40 mg EC Tab PO SCH (10:56)
[2017-07-08 11:19] LABS: BASO % 0.1 % (0.0-2.0); EOS % 0.4 % (0.0-4.0); HEMOGLOBIN 13.5 g/dL (12.0-18.0); LYMPH # 0.6 K/uL (1.0-4.3); LYMPH % 7.5 % (20.0-40.0); MEAN CELL VOLUME 91.4 fL (80.0-94.0); MEAN CORPUSCULAR HEMOGLOBIN 31.5 pg (27.0-31.0); MEAN CORPUSCULAR HGB CONC 34.4 g/dL (33.0-37.0); MEAN PLATELET VOLUME 7.9 fL (7.2-11.7); MONO # 0.8 K/uL (0.0-0.8); MONO % 9.6 % (0.0-10.0); NEUT # 6.5 K/uL (1.8-7.0); NEUT % 82.4 % (50.0-75.0); PLATELET COUNT 221 K/uL (130-400); RBC 4.29 Mil/uL (4.40-5.90); RED CELL DISTRIBUTION WIDTH 12.6 % (11.5-14.5); WHITE BLOOD COUNT 7.9 K/uL (4.8-10.8)
[2017-07-08 11:36] LABS: ALBUMIN 3.4 g/dL (3.5-5.0); CALCIUM 9.9 mg/dl (8.6-10.4)
[2017-07-08 12:05] LABS: EOSINOPHIL 1 % (0-4); LYMPHOCYTE 7 % (20-40); MONOCYTE 7 % (0-10); NEUTROPHIL 85 % (50-75); PLATELET ESTIMATE NORMAL (NORMAL); TOTAL CELLS COUNTED 100
[2017-07-08] MEDS: Azithromycin 500mg/250ML NS 500 MG/250 ML BAG IVPB SCH (12:34)
--- NOTE | 2017-07-08 15:46 | CP.PCM.PN ---
Subjective - Date & Time of Evaluation Date of Evaluation: 07/08/17 Time of Evaluation: 15:43 - Subjective Subjective: PGY2 progress note for Dr. Byrne Pt seen and examined at bedside. No acute events overnight. Patient is status post cystoscopy yesterday with Dr. Navarro. This morning, pt is complaining of gross hematuria with some passage of clots. Patient does c/o pain with passage of clots. Patient denies having any abd pain, N/V/D/C, F/C. Patient still complains of a slight non-productive cough and some chest congestion. Objective - Vital Signs/Intake and Output Vital Signs (last 24 hours): Temp Pulse Resp BP Pulse Ox 98.2 F 74 20 162/68 H 99 07/08/17 10:19 07/08/17 10:19 07/08/17 10:19 07/08/17 10:19 07/08/17 10:19 Intake and Output: 07/08/17 07/08/17 06:59 18:59 Intake Total 1050 780 Output Total 200 550 Balance 850 230 - Medications Medications: Current Medications Guaifenesin (Robitussin) 200 mg PO Q6H [facility] Last Admin: 07/08/17 12:34 Dose: 200 mg Cefepime HCl 1 gm/ Dextrose 50 mls @ 100 mls/hr IVPB DAILY KATHLEEN PRN Reason: Protocol Last Admin: 07/08/17 10:56 Dose: 100 mls/hr Azithromycin (Zithromax 500mg In Ns Addvantage) 500 mg in 250 mls @ 167 mls/hr IVPB Q24H KATHLEEN PRN Reason: Protocol Last Admin: 07/08/17 12:34 Dose: 167 mls/hr Pantoprazole Sodium (Protonix Ec Tab) 40 mg PO DAILY KATHLEEN Last Admin: 07/08/17 10:56 Dose: 40 mg - Labs Labs: 07/08/17 11:04 07/08/17 11:04 PT 12.2 SECONDS (9.7-12.2) 07/04/17 05:25 INR 1.1 07/04/17 05:25 APTT 32 SECONDS (21-34) 07/04/17 05:25 - Constitutional Appears: Non-toxic, No Acute Distress - Head Exam Head Exam: ATRAUMATIC - ENT Exam ENT Exam: Mucous Membranes Moist - Respiratory Exam Respiratory Exam: Clear to Ausculation Bilateral. absent: Accessory Muscle Use , Rales, Rhonchi, Wheezes, Respiratory Distress - Cardiovascular Exam Cardiovascular Exam: REGULAR RHYTHM, +S1, +S2. absent: Gallop, Rubs, Murmur - GI/Abdominal Exam GI & Abdominal Exam: Soft, Normal Bowel Sounds. absent: Distended, Firm, Guarding, Rigid, Tenderness, Organomegaly - Extremities Exam Extremities Exam: absent: Pedal Edema, Tenderness - Neurological Exam Neurological Exam: Alert, Awake, Oriented x3 - Psychiatric Exam Psychiatric exam: Normal Affect, Normal Mood - Skin Skin Exam: Dry, Intact, Normal Color, Warm Assessment and Plan - Assessment and Plan (Free Text) Assessment: 76 year old male with no past medical history is admitted for pneumonia and hematuria PNA - CT of chest showed trace bilateral pleural effusion and multiple nodules seen in lungs. Right perinephric inflammatory changes with hetergenous complex density of the right kidney. Prominent liver. Prominent nodular thickening of bilateral adrenal glands. Please see full report for details. - Continue Cefepime and zithromax - will check procal Pulmonary nodules - Will consider consulting pulmonology for further recs Hematuria - Ct of abd/pelvis showed right repinephric inflammatory changes with heterogenous complex density of the right kidney - Urology, Dr. Navarro consulted. Pt underwent cystoscopy yesterday. Pending biopsy result Prophylaxis - Protonix - SCDs - Rx AC contraindicated due to hematuria All managements and orders per Dr. Byrne
--- NOTE | 2017-07-08 18:12 | CP.PCM.PN ---
Subjective - Date & Time of Evaluation Date of Evaluation: 07/08/17 Time of Evaluation: 07:00 - Subjective Subjective: clinically same Objective - Vital Signs/Intake and Output Vital Signs (last 24 hours): Temp Pulse Resp BP Pulse Ox 98.2 F 74 20 162/68 H 99 07/08/17 10:19 07/08/17 10:19 07/08/17 10:19 07/08/17 10:19 07/08/17 10:19 Intake and Output: 07/08/17 07/08/17 06:59 18:59 Intake Total 1050 780 Output Total 200 550 Balance 850 230 - Medications Medications: Current Medications Acetaminophen (Tylenol 325mg Tab) 650 mg PO Q6 PRN PRN Reason: Pain, moderate (4-7) Guaifenesin (Robitussin) 200 mg PO Q6H [facility] Last Admin: 07/08/17 12:34 Dose: 200 mg Cefepime HCl 1 gm/ Dextrose 50 mls @ 100 mls/hr IVPB DAILY KATHLEEN PRN Reason: Protocol Last Admin: 07/08/17 10:56 Dose: 100 mls/hr Azithromycin (Zithromax 500mg In Ns Addvantage) 500 mg in 250 mls @ 167 mls/hr IVPB Q24H KATHLEEN PRN Reason: Protocol Last Admin: 07/08/17 12:34 Dose: 167 mls/hr Pantoprazole Sodium (Protonix Ec Tab) 40 mg PO DAILY [facility] Last Admin: 07/08/17 10:56 Dose: 40 mg - Labs Labs: 07/08/17 11:04 07/08/17 11:04 PT 12.2 SECONDS (9.7-12.2) 07/04/17 05:25 INR 1.1 07/04/17 05:25 APTT 32 SECONDS (21-34) 07/04/17 05:25 - Constitutional Appears: Well - Head Exam Head Exam: ATRAUMATIC, NORMAL INSPECTION, NORMOCEPHALIC - Eye Exam Eye Exam: EOMI, Normal appearance, PERRL Pupil Exam: NORMAL ACCOMODATION, PERRL - ENT Exam ENT Exam: Mucous Membranes Moist, Normal Exam - Neck Exam Neck Exam: Full ROM, Normal Inspection. absent: Lymphadenopathy - Respiratory Exam Respiratory Exam: Decreased Breath Sounds - Cardiovascular Exam Cardiovascular Exam: REGULAR RHYTHM, +S1, +S2 - GI/Abdominal Exam GI & Abdominal Exam: Soft, Diminished Bowel Sounds - Rectal Exam Rectal Exam: Deferred
--- NOTE | 2017-07-08 23:26 | PCM.URO ---
Urology Progress Note - General General: No Complaints, Tolerating Diet - Subjective Abdominal Pain: No Flank Pain: No Nausea: No Vomiting: No Voiding Well: Yes Dysuria: Yes (mild) Hematuria: Yes (previous hematuia this am, now clear) Good Stream: Yes Weak Stream: No Stone Passed: No Dsypnea: No Chest Pain: No Fever & Chills: No - Objective Lab Studies: Reviewed (hct=39 creat=1.4 urine and blood cultures are negative) Lab Results Last 24 Hours: Laboratory Results - last 24 hr 07/08/17 07/08/17 11:04 11:04 WBC 7.9 RBC 4.29 L Hgb 13.5 Hct 39.2 MCV 91.4 MCH 31.5 H MCHC 34.4 RDW 12.6 Plt Count 221 MPV 7.9 Neut % (Auto) 82.4 H Lymph % (Auto) 7.5 L [place] % (Auto) 9.6 Eos % (Auto) 0.4 Baso % (Auto) 0.1 Neut # (Auto) 6.5 Lymph # (Auto) 0.6 L [place] # (Auto) 0.8 Eos # (Auto) 0.0 Baso # (Auto) 0.0 Neutrophils % (Manual) 85 H Lymphocytes % (Manual) 7 L Monocytes % (Manual) 7 Eosinophils % (Manual) 1 Platelet Estimate Normal Sodium 136 Potassium 4.6 Chloride 94 L Carbon Dioxide 31 H Anion Gap 15 BUN 23 H Creatinine 1.4 Est GFR ( Amer) 59 Est GFR (Non-Af Amer) 49 Random Glucose 112 H Calcium 9.9 Total Bilirubin 0.7 AST 77 H ALT 23 Alkaline Phosphatase 69 Total Protein 6.8 Albumin 3.4 L Globulin 3.4 Albumin/Globulin Ratio 1.0 Intake & Output: Intake & Output 07/08/17 07/08/17 07/09/17 06:59 18:59 06:59 Intake Total 1050 780 Output Total 200 550 Balance 850 230 Intake: IV 300 Intake, IV Amount 400 300 Right Antecubital 400 300 Oral 350 480 Output: Urine 200 550 Urine, Voided 200 550 Other: # Voids Urine, Voided 1 # Bowel Movements 0 1 Vital Signs: Vital Signs - 24 hr 07/07/17 07/08/17 07/08/17 23:24 10:19 16:00 Temperature 97.6 F 98.2 F 97.6 F Pulse Rate 80 74 99 H Respiratory 20 20 20 Rate Blood Pressure 138/61 162/68 H 134/70 O2 Sat by Pulse 94 L 99 97 Oximetry - Physical Exam Abdominal Exam: Soft, Non-Tender, Non-Distended Back: No CVA Tenderness Genitalia: Without Inflammation Urine Color: Light Alanna - Male Phallus: Normal Scrotum: Normal - Plan Ambulation - Out of Bed: Yes Intake & Output: Yes Additional Information: IMP: stable p cysto. improved re hematuria. Rec/ plan. discussed w pt, family, and hosp staff re further management. On cefepime - Date & Time of Note Date: 07/08/17 Time: 16:00
[2017-07-09] MEDS: guaiFENesin 200 mg/10 ml Syrup UD PO SCH ×3 (00:40→11:07)
[2017-07-09 06:24] LABS: BASO % 0.3 % (0.0-2.0); EOS # 0.1 K/uL (0.0-0.7); HEMOGLOBIN 13.3 g/dL (12.0-18.0); LYMPH # 0.7 K/uL (1.0-4.3); LYMPH % 10.5 % (20.0-40.0); MEAN CELL VOLUME 90.7 fL (80.0-94.0); MEAN CORPUSCULAR HEMOGLOBIN 31.2 pg (27.0-31.0); MEAN CORPUSCULAR HGB CONC 34.4 g/dL (33.0-37.0); MEAN PLATELET VOLUME 7.9 fL (7.2-11.7); MONO # 0.6 K/uL (0.0-0.8); MONO % 9.2 % (0.0-10.0); NEUT # 5.4 K/uL (1.8-7.0); RBC 4.26 Mil/uL (4.40-5.90); RED CELL DISTRIBUTION WIDTH 12.9 % (11.5-14.5); WHITE BLOOD COUNT 6.9 K/uL (4.8-10.8)
[2017-07-09 06:46] LABS: BLOOD UREA NITROGEN 23 mg/dL (9-20); CALCIUM 10.3 mg/dl (8.6-10.4); GFR AFRICAN-AMERICAN > 60; GFR NON-AFRICAN AMERICAN 53
[2017-07-09 08:47] VITALS: BP 131/77; PULSE 90; TEMP 98
--- NOTE | 2017-07-09 10:26 | CP.PCM.PN ---
Subjective - Date & Time of Evaluation Date of Evaluation: 07/09/17 Time of Evaluation: 10:06 - Subjective Subjective: Medicine progress note for Dr. Byrne's service Patient seen and examined. Patient states he feels well. Patient denies hematuria. Objective - Vital Signs/Intake and Output Vital Signs (last 24 hours): Temp Pulse Resp BP Pulse Ox 98 F 90 20 131/77 95 07/09/17 07:00 07/09/17 07:00 07/09/17 07:00 07/09/17 07:00 07/09/17 07:00 Intake and Output: 07/09/17 07/09/17 06:59 18:59 Intake Total 480 300 Output Total 400 Balance 80 300 - Medications Medications: Current Medications Acetaminophen (Tylenol 325mg Tab) 650 mg PO Q6 PRN PRN Reason: Pain, moderate (4-7) Last Admin: 07/08/17 18:21 Dose: 650 mg Guaifenesin (Robitussin) 200 mg PO Q6H KATHLEEN Last Admin: 07/09/17 05:45 Dose: 200 mg Cefepime HCl 1 gm/ Dextrose 50 mls @ 100 mls/hr IVPB DAILY KATHLEEN PRN Reason: Protocol Last Admin: 07/08/17 10:56 Dose: 100 mls/hr Azithromycin (Zithromax 500mg In Ns Addvantage) 500 mg in 250 mls @ 167 mls/hr IVPB Q24H KATHLEEN PRN Reason: Protocol Last Admin: 07/08/17 12:34 Dose: 167 mls/hr Pantoprazole Sodium (Protonix Ec Tab) 40 mg PO DAILY KATHLEEN Last Admin: 07/08/17 10:56 Dose: 40 mg - Labs Labs: 07/09/17 06:17 07/09/17 06:17 PT 12.2 SECONDS (9.7-12.2) 07/04/17 05:25 INR 1.1 07/04/17 05:25 APTT 32 SECONDS (21-34) 07/04/17 05:25 - Constitutional Appears: No Acute Distress - Head Exam Head Exam: ATRAUMATIC, NORMOCEPHALIC - Eye Exam Eye Exam: EOMI - ENT Exam ENT Exam: Mucous Membranes Moist - Respiratory Exam Respiratory Exam: Clear to Ausculation Bilateral - Cardiovascular Exam Cardiovascular Exam: +S1, +S2 - GI/Abdominal Exam GI & Abdominal Exam: Soft, Normal Bowel Sounds. absent: Tenderness - Extremities Exam Extremities Exam: Normal Inspection. absent: Pedal Edema - Back Exam Additional comments: soft tissue mass back of cervical spine, freely mobile - Neurological Exam Neurological Exam: Alert, Awake - Psychiatric Exam Psychiatric exam: Normal Affect - Skin Skin Exam: Warm Assessment and Plan - Assessment and Plan (Free Text) Assessment: 76 year old male with no past medical history is admitted for pneumonia and hematuria PNA - CT of chest showed trace bilateral pleural effusion and multiple nodules seen in lungs. Right perinephric inflammatory changes with hetergenous complex density of the right kidney. Prominent liver. Prominent nodular thickening of bilateral adrenal glands. Please see full report for details. - Continue Cefepime and zithromax - will check procal Pulmonary nodules - Will consider consulting pulmonology for further recs Hematuria - Ct of abd/pelvis showed right repinephric inflammatory changes with heterogenous complex density of the right kidney - Urology, Dr. Navarro consulted. Pt underwent cystoscopy yesterday. Pending biopsy result - urine culture negative Prophylaxis - Protonix - SCDs - Rx AC contraindicated due to hematuria All managements and orders per Dr. Byrne Patient is stable for discharge home per Dr. Byrne. Patient is to follow up with Dr. Byrne in his office tomorrow 07/10/17 at 3PM. Patient is to take Levaquin twice a day for 7 days on discharge. Patient is also to follow up with Dr. Navarro within the next 1-2 weeks. Patient may return to work end of next week 07/17/17. Patient is to return to the ED if his symptoms reoccur or worsen.
[2017-07-09] MEDS: Azithromycin 500mg/250ML NS 500 MG/250 ML BAG IVPB SCH (11:07)
[2017-07-09] MEDS: Pantoprazole 40 mg EC Tab PO SCH (11:07)
[2017-07-09 14:59] VITALS: O2SAT 98
--- NOTE | 2017-07-09 16:41 | CP.PCM.PN ---
Subjective - Date & Time of Evaluation Date of Evaluation: 07/09/17 Time of Evaluation: 07:00 - Subjective Subjective: clinically same Objective - Vital Signs/Intake and Output Vital Signs (last 24 hours): Temp Pulse Resp BP Pulse Ox 98 F 90 20 131/77 98 07/09/17 07:00 07/09/17 11:15 07/09/17 07:00 07/09/17 07:00 07/09/17 11:15 Intake and Output: 07/09/17 07/09/17 06:59 18:59 Intake Total 480 1000 Output Total 400 Balance 80 1000 - Medications Medications: Current Medications Acetaminophen (Tylenol 325mg Tab) 650 mg PO Q6 PRN PRN Reason: Pain, moderate (4-7) Last Admin: 07/08/17 18:21 Dose: 650 mg Guaifenesin (Robitussin) 200 mg PO Q6H KATHLEEN Last Admin: 07/09/17 11:07 Dose: 200 mg Cefepime HCl 1 gm/ Dextrose 50 mls @ 100 mls/hr IVPB DAILY KATHLEEN PRN Reason: Protocol Last Admin: 07/09/17 11:06 Dose: 100 mls/hr Azithromycin (Zithromax 500mg In Ns Addvantage) 500 mg in 250 mls @ 167 mls/hr IVPB Q24H KATHLEEN PRN Reason: Protocol Last Admin: 07/09/17 11:07 Dose: 167 mls/hr Pantoprazole Sodium (Protonix Ec Tab) 40 mg PO DAILY KATHLEEN Last Admin: 07/09/17 11:07 Dose: 40 mg - Labs Labs: 07/09/17 06:17 07/09/17 06:17 PT 12.2 SECONDS (9.7-12.2) 07/04/17 05:25 INR 1.1 07/04/17 05:25 APTT 32 SECONDS (21-34) 07/04/17 05:25 - Constitutional Appears: Well - Head Exam Head Exam: ATRAUMATIC, NORMAL INSPECTION, NORMOCEPHALIC - Eye Exam Eye Exam: EOMI, Normal appearance, PERRL Pupil Exam: NORMAL ACCOMODATION, PERRL - ENT Exam ENT Exam: Mucous Membranes Moist, Normal Exam - Neck Exam Neck Exam: Full ROM, Normal Inspection. absent: Lymphadenopathy - Respiratory Exam Respiratory Exam: Decreased Breath Sounds - Cardiovascular Exam Cardiovascular Exam: REGULAR RHYTHM, +S1, +S2 - GI/Abdominal Exam GI & Abdominal Exam: Soft, Diminished Bowel Sounds - Rectal Exam Rectal Exam: Deferred
== END 2017-07-09 17:00 | disposition home or self-care (01) | DRG 195 ==
LOC: C.ER 04:56 → C.9E 09:21 → C.3T 10:08
PROVIDERS: ADMIT Internal Medicine Nephrology; ATTEND Internal Medicine Nephrology
PROC: BT141ZZ Fluoroscopy of Kidneys, Ureters and Bladder using Low Osmolar Contrast (ICD-10-PCS; principal; 2017-07-08)
DX: J18.9 Pneumonia, unspecified organism (principal); J34.2 Deviated nasal septum; N28.89 Other specified disorders of kidney and ureter; R04.0 Epistaxis; R31.0 Gross hematuria; Z85.828 Personal history of other malignant neoplasm of skin